=== PATIENT | female | born 1995 ===

== ENCOUNTER 2022-03-29 16:22 | Outpatient (REF) | payer MEDICAID, SELFPAY ==
[2022-03-30 19:46] LABS: Chlamydia Result Negative (Negative); GC Result Negative (Negative)
== END 2022-03-29 16:23 | disposition home or self-care (01) ==
LOC: LBN 16:22
PROVIDERS: Visit Provider Obstetrics & Gynecology
DX: N89.8 Other specified noninflammatory disorders of vagina (principal); Z11.3 Encounter for screening for infections with a predominantly sexual mode of transmission
CPT/HCPCS: 87491; 87591; 87480; 87510; 87660

== ENCOUNTER 2022-11-11 15:13 | Emergency (ER) | payer MEDICAID, SELFPAY ==
[2022-11-11 15:16] VITALS: BP 123/81; PULSE 76; RESP 15; TEMP 36.7; O2SAT 99
--- NOTE | 2022-11-11 15:28 | ED.GENADUL_ITS ---
Discharge Plan Disposition Patient Disposition: Home Discharge Details Chief Complaint: EarProblem Clinical Impression: Sinusitis ED Provider: Marcello Simons Home Meds and New Rx's Prescriptions: No Action No Known Home Meds Discharge Instructions Instructions: Sinusitis (ED) Additional Instructions: Please follow-up with primary care physician referral. Please return to the emergency department for any worsening symptoms Medical Decision Making 27-year-old female history of severe seasonal allergies presents with right- sided facial pain ear discomfort congestion, afebrile nontoxic tolerating secretions no respiratory distress, TMs clear bilaterally, mild submandibular right lymphadenopathy, no evidence of oropharyngeal infection. No evidence of deep space infection of head or neck. Normal voice no acute distress. Likely viral sinusitis versus allergic sinusitis versus less likely bacterial sinu sitis, low suspicion for deep space infection of head or neck or dental infection given history and physical. Will provide anti-inflammatory in the form of dexamethasone. Will provide primary care referral. Home care instructions and return precautions HPI General Date/Time Provider Initiated Documentation: 11/11/22 15:23 . HPI Narrative: 27-year-old female presents with right-sided facial pain ear pressure and facial soreness on the right side of the past several days. Endorses recurrent severe allergies. Denies fevers chills nausea vomiting or trouble breathing. Related Data Home Medications Medication Instructions Recorded Confirmed Unknown [No Known Home Meds] 06/11/22 11/11/22 Allergies Allergy/AdvReac Type Severity Reaction Status Date / Time No Known Allergies Allergy Verified 11/11/22 15:24 General Stated Complaint: EyeProblem AMA: 4 Review of Systems Narrative: Review of Systems Constitutional: negative Eyes: negative ENT: Ear pain facial pain, congestion Cardiovascular: negative Respiratory: negative Gastrointestinal: negative : negative Musculoskeletal: negative Skin: negative Neurologic: negative Psych: negative PFSH All Active Problems (Updated 11/11/22 @ 15:34 by Marcello Simons MD) Sinusitis (Acute) IUD surveillance (Acute) Vaginal discharge (Acute) Vulvar pruritus (Acute) Family History Father Diabetes Mother Hypertension Social History Smoking/Tobacco Use Status: Never Smoking risk assessment performed?: Yes Alcohol Intake: current Alcohol Intake frequency: holidays/special occasions only Drug use: Never Substance use type: does not use Do you feel safe at home: Yes Do you feel safe in your relationship?: Yes Female Reproductive History Menstrual Age of Menarche: 10 Duration of menses: 3-5 days control method: copper IUCD History History 2 Para 1 Hx # Term Pregnancies 1 Multiple births Hx # Pregnancies Ectopic pregnancies AB induced Hx Number of Living Children 1 AB spontaneous Exam Narrative Exam Narrative: Physical Examination General: alert, awake, cooperative, resting comfortably, no acute distress HEENT: normocephalic, atraumatic; PERRL, EOM intact, conjunctiva normal; no nasal discharge; moist mucous membranes, oral and pharyngeal mucosa normal, tolerating secretions; TMs clear bilaterally; mild submandibular lymphadenopathy; oropharynx unremarkable, no dental caries no periapical abscess no evidence of deep space infection of head or neck Neck: supple, trachea midline; full ROM Chest: normal to inspection Respiratory: normal respiratory effort, speaking in full sentences, clear to auscultation, no wheezing, rales or rhonchi Cardiac: regular rate, regular rhythm, S1S2 intact, no murmurs rubs or gallops GI: abdomen soft, non-tender, non-distended; no palpable mass or hepatosplenomegaly Skin: no lesions, rashes or trauma appreciated Neuro: AAOx3, normal speech, moving all extremities Psych: Appropriate mood and affect Course Vital Signs Vital signs: Vital Signs Temperature 36.7 C 11/11/22 15:16 Pulse 76 11/11/22 15:16 Respiratory Rate 15 11/11/22 15:16 Blood Pressure 123/81 11/11/22 15:16 Pulse Oximetry 99 11/11/22 15:16 Temperature 36.7 C 11/11/22 15:16 Temperature Source Oral 11/11/22 15:16 Pulse 76 11/11/22 15:16 Respiratory Rate 15 11/11/22 15:16 Respiratory Effort Normal 11/11/22 15:21 Blood Pressure 123/81 11/11/22 15:16 Blood Pressure Position Sitting 11/11/22 15:16 Pulse Oximetry 99 11/11/22 15:16 Oxygen Delivery Method Room Air 11/11/22 15:16 Oxygen Flow Rate 0 11/11/22 15:16 Pain Level 10 11/11/22 15:16
[2022-11-11] MEDS: Dexamethasone 10 MG/ML VIAL PO (15:45)
[2022-11-11] MEDS: diphenhydrAMINE 25 MG CAP PO (15:45)
--- NOTE | 2022-11-11 16:51 | NUR.NOTE ---
Nursing Note: Referral given to Care Management for needs PCP, sinusitis/ 1 to 2 weeks.
--- NOTE | 2022-11-13 14:10 | CMACTNOTE_ITS ---
Date of service: 11/13/22 Time of Service: 14:11 Care Management Activity Note Activity Note Text Activity Note Text: Tomasa is seen in the ED for sinusitis. At the request of ED provider, CM coordinates a referral to Eva Jefferson MD, of [facility], t-doc, to assist Tomasa in obtaining a follow up appointment and in establishing care with a PCP. She has Medicaid for insurance.
== END 2022-11-11 15:45 | disposition home or self-care (01) ==
LOC: ER 15:54
PROVIDERS: Emergency Provider Emergency Medicine
DX: J32.9 Chronic sinusitis, unspecified (principal)
CPT/HCPCS: 99283; J1100

== ENCOUNTER 2023-04-02 18:41 | Outpatient (REF) | payer MEDICAID, SELFPAY | END 2023-04-02 18:42 | disposition home or self-care (01) | LOC: LBN 18:41 | PROVIDERS: Visit Provider Obstetrics & Gynecology | DX: L29.2 Pruritus vulvae (principal); N89.8 Other specified noninflammatory disorders of vagina | CPT/HCPCS: 87480; 87510; 87660 ==

== ENCOUNTER 2023-05-24 12:37 | Emergency (ER) | payer MEDICAID, SELFPAY ==
[2023-05-24 12:42] VITALS: BP 132/71; PULSE 83; RESP 20; TEMP 37.6; O2SAT 99
[2023-05-24 12:43] VITALS: BP 132/71; PULSE 84
[2023-05-24 12:46] VITALS: BP 136/74; PULSE 83
[2023-05-24 13:01] VITALS: BP 133/92; PULSE 95
--- NOTE | 2023-05-24 13:08 | W.ED.GENAD ---
Discharge Plan Disposition Patient Disposition: Home Discharge Details Clinical Impression: URI (upper respiratory infection) Primary Care Provider: Unknown,Unknown ED Provider: Javier Read Home Meds and New Rx's Prescriptions: New benzonatate 200 mg capsule 200 mg PO TID PRN (Reason: cough) Qty: 30 0RF amoxicillin 875 mg tablet 875 mg PO BID Qty: 14 0RF Discontinued fluconazole 150 mg tablet 150 mg PO Q3D Qty: 2 1RF Rx Instructions: may repeat second dose 72 hrs after first dose if symptoms persist Discharge Instructions Instructions: Upper Respiratory Infection (ED) Additional Instructions: You may hold off on starting the antibiotic for the next 24 hours and monitor symptoms. If you have any significant worsening of your condition or lack of improvement of your cough please start the antibiotic and take for the full course. Otherwise use the prescribed cough medication along with any [id number] medications that help your symptoms. Just take as directed on packaging. Return to the emergency department for any new or significant worsening of symptoms Otherwise follow-up with primary care provider or urgent care for reassessment if not improving in the next 5 days. Referrals: Primary Care Provider [Outside] - 5 days (If not improving) Medical Decision Making Patient presenting to the clinic for chief complaint of cold symptoms. Patient reports symptoms have been going on for the past 7 days. reports cough, malaise, nasal congestion, and sore throat. Physical exam shows dry nonproductive cough otherwise clear lung sounds and otherwise unremarkable exam. Patient has no signs of meningitis, peritonsillar abscess, retropharyngeal abscess, Oscar's angina, or life-threatening Airway infection. Vital signs show no fever, no tachycardia, no hypoxia and normal blood pressure. Suspect viral illness but also do consider possible early pneumonia given that patient states worsening productive cough with persistent coughing noted during exam.. Low Centor score COVID and influenza testing was performed and negative. Will prescribe Tessalon Perles and amoxicillin for patient to hold for the next 24 hours and monitor symptoms and start if she continues to have worsening of condition. Otherwise conservative management discussed along with follow-up and return precautions after discussion of diagnosis and plan of care patient has no further needs, questions, or concerns and states clear understanding to return to the emergency department for any worsening symptoms. This documentation was generated using [employer] system, please disregard any oddities of phrase or misspellings. HPI General Mode of arrival: ambulatory. Date/Time Provider Initiated Documentation: 05/24/23 12:54. Limitations to Documentation: no limitations. Information obtained by: patient and RN notes reviewed. History of Present Illness 28 year old F presents to the emergency department with the chief complaint of Worsening cough, described as moderate, Quality is described as aching, and is localized to the chest. Patient reports no radiation. Patient started experiencing this week(s) (1) and it has been constant. No relieving factors improve symptom(s), No exacerbating factors reported . Patient did receive the following treatments prior to arrival, other ([id number] cough medications) Related Data Home Medications Medication Instructions Recorded Confirmed amoxicillin 875 mg tablet 875 mg PO BID #14 tabs 05/24/23 benzonatate 200 mg capsule 200 mg PO TID PRN cough #30 caps 05/24/23 Previous Rx's Medication Instructions Recorded amoxicillin 875 mg tablet 875 mg PO BID #14 tabs 05/24/23 benzonatate 200 mg capsule 200 mg PO TID PRN cough #30 caps 05/24/23 Allergies Allergy/AdvReac Type Severity Reaction Status Date / Time No Known Allergies Allergy Verified 04/02/23 11:24 General Stated Complaint: RespSymp AMA: 3 Review of Systems Constitutional Constitutional: Reports fever(s) (Now resolved), Denies headache(s) and Reports malaise Eyes Eyes: Denies eye discharge ENT Ears, Nose, Mouth, and Throat: Reports as per HPI, Denies ear discharge, Reports otalgia, Denies headache(s), Reports nasal congestion, Denies neck pain, Reports sore throat and Denies throat swelling Cardiovascular Cardiovascular: Denies chest pain and Denies dyspnea Respiratory Respiratory: Reports cough and Denies dyspnea Musculoskeletal Musculoskeletal: Denies joint swelling and Denies neck pain Integumentary/Breasts Skin/Breast: Denies rash Neurologic Neurologic: Denies headache(s) Allergic/Immunologic Allergic/Immunologic: Denies throat swelling PFSH All Active Problems (Updated 05/24/23 @ 13:13 by Javier Read NP) URI (upper respiratory infection) (Acute) Yeast vaginitis (Acute) IUD surveillance (Acute) Vaginal discharge (Acute) Vulvar pruritus (Acute) Family History Father Diabetes Mother Hypertension Social History Smoking/Tobacco Use Status: Never Smoking risk assessment performed?: Yes Alcohol Intake: current Alcohol Intake frequency: holidays/special occasions only Drug use: Never Substance use type: does not use Do you feel safe at home: Yes Do you feel safe in your relationship?: Yes Female Reproductive History Menstrual Age of Menarche: 10 Duration of menses: 3-5 days control method: copper IUCD History History 2 Para 1 Hx # Term Pregnancies 1 Multiple births Hx # Pregnancies Ectopic pregnancies AB induced Hx Number of Living Children 1 AB spontaneous Exam Const General: cooperative, comfortable and no acute distress Orientation: alert and awake HENMT Head: normal to inspection, normocephalic and atraumatic Ears: hearing grossly normal bilaterally and TM's normal bilaterally General nose exam: external nose normal Face and sinus: no erythema Mouth: oral mucosae normal, no drooling, no muffled voice and no trismus Throat: posterior oropharynx normal Neck Neck: normal visual inspection, full ROM, no lymphadenopathy, no meningeal signs, trachea midline and supple Resp Effort & Inspection: normal respiratory effort, able to speak in complete sentences and cough Quality of cough: dry Auscultation: clear to auscultation bilaterally Cardio Rate: regular rate Rhythm: regular rhythm Heart Sounds: S1 normal, S2 normal, normal S1 and S2, no click, no gallops, no murmurs and no rubs Skin General skin exam: no rashes or lesions noted and dry skin (warm) Neuro General: patient alert, patient awake, patient oriented x3, gait normal and moves all extremities Cognition: normal cognition Speech: speech normal Course Vital Signs Vital signs: Vital Signs Temperature 37.6 C 05/24/23 12:42 Pulse 83 05/24/23 12:42 Respiratory Rate 20 05/24/23 12:42 Blood Pressure 132/71 05/24/23 12:42 Pulse Oximetry 99 05/24/23 12:42 Temperature 37.6 C 05/24/23 12:42 Temperature Source Tympanic 05/24/23 12:42 Pulse 83 05/24/23 12:42 Respiratory Rate 20 05/24/23 12:42 Respiratory Effort Normal 05/24/23 12:45 Respiratory Depth Normal 05/24/23 12:45 Blood Pressure 132/71 05/24/23 12:42 Blood Pressure Position Sitting 05/24/23 12:42 Pulse Oximetry 99 05/24/23 12:42 Oxygen Delivery Method Room Air 05/24/23 12:42 Oxygen Flow Rate 0 05/24/23 12:42 Pain Level 0 05/24/23 12:42
[2023-05-24 13:16] VITALS: BP 119/83; PULSE 80
[2023-05-24 13:33] VITALS: BP 119/83; PULSE 80; RESP 20; TEMP 37.6; O2SAT 99
== END 2023-05-24 13:33 | disposition home or self-care (01) ==
PROVIDERS: Emergency Provider Nurse Practitioner Family
DX: J06.9 Acute upper respiratory infection, unspecified (principal)
CPT/HCPCS: 87426; 99283; 99284

== ENCOUNTER 2023-06-22 12:33 | Emergency (ER) | payer MEDICAID, SELFPAY ==
[2023-06-22 12:37] VITALS: BP 112/68; PULSE 91; RESP 16; TEMP 37.1; O2SAT 99
--- NOTE | 2023-06-22 12:44 | ED.GENADUL_ITS ---
HPI General Mode of arrival: ambulatory . Date/Time Provider Initiated Documentation: 06/22/23 12:33 . Limitations to Documentation: no limitations . Information obtained by: patient . History of Present Illness 28 year old F presents to the emergency department with the chief complaint of sore throat, described as moderate, Patient started experiencing this day(s) (1) and it has been constant. No relieving factors improve symptom(s), No exacerbating factors reported . Patient notes fever/chills. Related Data Home Medications Medication Instructions Recorded Confirmed amoxicillin 500 mg tablet 500 mg PO BID #20 tabs 06/22/23 Previous Rx's Medication Instructions Recorded amoxicillin 500 mg tablet 500 mg PO BID #20 tabs 06/22/23 Allergies Allergy/AdvReac Type Severity Reaction Status Date / Time No Known Allergies Allergy Verified 06/22/23 12:39 General Stated Complaint: Sorethroat AMA: 4 Review of Systems All systems reviewed & are unremarkable except as noted in HPI and below Constitutional Constitutional: Denies chills, Reports fever(s) and Denies weakness Cardiovascular Cardiovascular: Denies chest pain and Denies dyspnea Respiratory Respiratory: Denies cough and Denies dyspnea Gastrointestinal Gastrointestinal: Denies abdominal pain, Denies nausea and Denies vomiting Musculoskeletal Musculoskeletal: Denies joint swelling Neurologic Neurologic: Denies weakness Exam Const General: no acute distress Orientation: alert HENWI Head: normal to inspection Ears: external ears normal General nose exam: external nose normal Mouth: moist mucous membranes Eyes General: appearance normal, both eyes and all related structures Neck Neck: normal visual inspection Resp Effort & Inspection: normal respiratory effort and able to speak in complete sentences Cardio Rate: regular rate Skin General skin exam: no rashes or lesions noted Neuro General: patient alert and patient oriented x3 Extrem General: normal to inspection Psych Mental Status: mental status grossly normal Course Vital Signs Vital signs: Vital Signs Temperature 37.1 C 06/22/23 12:37 Pulse 91 H 06/22/23 12:37 Respiratory Rate 16 06/22/23 12:37 Blood Pressure 112/68 06/22/23 12:37 Pulse Oximetry 99 06/22/23 12:37 Temperature 37.1 C 06/22/23 12:37 Temperature Source Temporal Artery Scan 06/22/23 12:37 Pulse 91 H 06/22/23 12:37 Respiratory Rate 16 06/22/23 12:37 Respiratory Effort Normal, Non-Labored 06/22/23 12:40 Blood Pressure 112/68 06/22/23 12:37 Blood Pressure Position Sitting 06/22/23 12:37 Pulse Oximetry 99 06/22/23 12:37 Oxygen Delivery Method Room Air 06/22/23 12:37 Oxygen Flow Rate 0 06/22/23 12:37 Medical Decision Making 28 yo female who denies chronic medical problems comes in with one day of sore throat and subjective fevers and body aches. Denies headaches, difficulty swal lowing liquids, dyspnea, cough, rashes, abdominal pain or n/v. She has erythema of the posterior pharynx, midline uvula, no pain over the hyoid or restricted neck movements, no hot potatoe voice, no stridor, no drooling. She is positive for strep and exam and history fits with this, has no findings on exam to suggest peritonsilar abscess or retropharyngeal abscess or epiglotitis. Will give one time dose of decadron and start on amoxicillin. She is stable for d/c, advised to f/u with pcp within a week if not improving and return precautions given Differential Diagnosis Differential Diagnosis: strep, covid, flu Quality:SDOH Health Related Social Needs: No Data to Display PFSH All Active Problems (Updated 06/22/23 @ 13:07 by Rufus Philippe MD) Strep throat (Acute) URI (upper respiratory infection) (Acute) Yeast vaginitis (Acute) IUD surveillance (Acute) Vaginal discharge (Acute) Vulvar pruritus (Acute) Family History Father Diabetes Mother Hypertension Social History Smoking/Tobacco Use Status: Never Smoking risk assessment performed?: Yes Alcohol Intake: current Alcohol Intake frequency: holidays/special occasions only Drug use: Never Substance use type: does not use Do you feel safe at home: Yes Do you feel safe in your relationship?: Yes Female Reproductive History Menstrual Age of Menarche: 10 Duration of menses: 3-5 days control method: copper IUCD History History 2 Para 1 Hx # Term Pregnancies 1 Multiple births Hx # Pregnancies Ectopic pregnancies AB induced Hx Number of Living Children 1 AB spontaneous PAWSS Have you Been Recently Intoxicated or Drunk Within the Last 30 days?: No Have you Ever Experienced Previous Episodes of Alcohol Withdrawal?: No Have you ever Experienced Withdrawal Seizures?: No Have you ever Experienced Delirium Tremens(DT)s?: No Have you ever undergone Alcohol Rehabilitation Treatment (i.e, inpt ot outpatient treatment programs)?: No Have you ever Experienced Blackouts?: No Have you ever Combined Alcohol with other Downers within the last 90 days?: No Have you ever Combined Alcohol with any other Substance of Abuse during the last 90 days?: No Positive Blood Alcohol level on Presentation? [PCS.BAL]: No Evidence of Increased Autonomic Activity (i.e. HR>120, tremor, sweating, agitation, nausea)?: No Result: 0 Discharge Plan Disposition Patient Disposition: Home Condition: Stable Discharge Details Clinical Impression: Strep throat Primary Care Provider: Estelita,[facility] ED Provider: Rufus Philippe Home Meds and New Rx's Prescriptions: New amoxicillin 500 mg tablet 500 mg PO BID Qty: 20 0RF Discharge Instructions Instructions: Strep Throat (ED) Additional Instructions: you are positive for strep on your throat swab you can take 1000mg tylenol and 600mg ibuprofen every 6 hours as needed follow up with your primary care provider within 1 week if symptoms aren't impro ving if you feel more ill, have severe worsening pain or are unable to swallow liquids return to the emergency department
[2023-06-22 12:52] VITALS: BP 112/68; PULSE 91; RESP 16; TEMP 37.1; O2SAT 99
[2023-06-22] MEDS: Dexamethasone 4 MG TAB 10 MG PO (13:08)
== END 2023-06-22 13:13 | disposition home or self-care (01) ==
PROVIDERS: Emergency Provider Emergency Medicine
DX: R50.9 Fever, unspecified (principal); J02.0 Streptococcal pharyngitis
CPT/HCPCS: 87880; 99283; J8540

== ENCOUNTER 2023-12-03 12:10 | Outpatient (REF) | payer OTHER, SELFPAY | END 2023-12-03 12:11 | disposition home or self-care (01) | LOC: LBN 12:10 | PROVIDERS: Visit Provider Obstetrics & Gynecology | DX: N89.8 Other specified noninflammatory disorders of vagina (principal); B37.9 Candidiasis, unspecified | CPT/HCPCS: 87491; 87591; 87480; 87510; 87660 ==